=== PATIENT | female | born 1930 | race Caucasian/White ===

== ENCOUNTER 2017-07-19 02:35 | Inpatient (IN) | payer OTHER ==
[~2017-07-19] VITALS: Ht 152.4 cm; Wt 46.5 kg
[~2017-07-19 02:35] MED LIST: AZOR 10/40 M1 TABLET PO; DETROL LA4 MG PO; FUROSEMIDE20 MG PO; HYDROCODONE-AP1 EAC8 PO; LOPRESSOR100 MG PO; LOTREL 5-40 MG1 EACH PO; NEXIUM40 MG PO; PRAVASTATIN SOD40 MG PO; PREDNISONE10 M2 PO
[2017-07-19 04:26] LABS: APPEARANCE SL.HAZY ((CLEAR)); BILIRUBIN NEGATIVE; BLOOD NEGATIVE; COLOR YELLOW ((YELLOW)); GLUCOSE (STRIP) NEGATIVE; KETONES NEGATIVE; LEUKOCYTES NEGATIVE; NITRITE NEGATIVE; PROTEIN (STRIP) 30; SPECIFIC GRAVITY 1.021 (1.000-1.030)
[2017-07-19 04:33] LABS: BACTERIA RARE /HPF; EPITHELIAL CELLS NONE SEEN /HPF; HYALINE CASTS 0-5 /LPF; MUCUS TRACE /LPF; RED BLOOD CELLS 0-5 /HPF (0-5); UCUL ADDED? NO; WHITE BLOOD CELLS 0-5 /HPF (0-5)
[2017-07-19 05:30] LABS: HEMATOCRIT 31.9 % (36.0-46.0); HEMOGLOBIN 10.2 G/DL (11.9-15.5); MCH 27.9 PG (29.0-34.0); MCV 87.4 FL (83-99); PLATELET COUNT 192 K/uL (156-360); RBC DIS.WIDTH-CV 14.2 % (11.8-14.6); RBC DIS.WIDTH-SD 45.5 % (39-53); RED BLOOD COUNT 3.65 M/uL (3.80-5.20)
[2017-07-19 05:56] LABS: ALBUMIN 3.3 g/dL (3.2-4.8); CHLORIDE 102 mEq/L (99-109); POTASSIUM 4.8 mEq/L (3.7-5.4); SODIUM 138 mEq/L (136-147)
[2017-07-19 05:58] LABS: GLUCOSE 126 mg/dL (70-99)
[2017-07-19 06:00] LABS: TOTAL BILIRUBIN 0.7 mg/dL (0.0-1.0)
[2017-07-19 06:02] LABS: ALKALINE PHOSPHATASE 83 IU/L (3-129); GFR ESTIMATE (CALCULATED) 56 mL/min/
[2017-07-19 06:03] LABS: UREA NITROGEN (BUN) 29 mg/dL (9-23)
[2017-07-19 06:04] LABS: AST (GOT) 33 IU/L (2-34)
[2017-07-19 06:05] LABS: ALT (GPT) 13 IU/L (3-49)
[2017-07-19 11:41] LABS: CRYSTALS NO CRYSTALS SEEN
[2017-07-19 11:42] LABS: APPEARANCE CLOUDY/BLOODY; BODY FLUID RBC'S ND /MM^3 (0-100); BODY FLUID WBC'S ND /MM^3 (0-500)
[2017-07-19 11:44] VITALS: BP 105/52
[2017-07-19 12:02] LABS: MONONUCLEAR WBC'S 25 %; POLYNUCLEAR WBC'S 75 % (0-25)
[2017-07-19 13:28] LABS: SYNOVIAL FLUID GLUCOSE < 10 MG/DL
== END 2017-07-19 12:56 | disposition hospice, home (50) | DRG 566 ==
LOC: EME → EDBD 02:35 → EDOF 09:20 → ENRESERV 09:43 → CANRESERV 10:04 → EDOF 11:48
PROVIDERS: Emergency Medicine
PROC: 0S993ZX Drainage of Right Hip Joint, Percutaneous Approach, Diagnostic (ICD-10-PCS; principal; 2017-07-19)
DX: M25.451 Effusion, right hip (principal); D72.829 Elevated white blood cell count, unspecified; Z51.5 Encounter for palliative care; M85.80 Other specified disorders of bone density and structure, unspecified site; I10 Essential (primary) hypertension; K21.9 Gastro-esophageal reflux disease without esophagitis; M25.562 Pain in left knee; R00.0 Tachycardia, unspecified; R41.0 Disorientation, unspecified; M25.551 Pain in right hip; R50.9 Fever, unspecified; R53.1 Weakness; M19.90 Unspecified osteoarthritis, unspecified site; F03.90 Unspecified dementia, unspecified severity, without behavioral disturbance, psychotic disturbance, mood disturbance, and anxiety; Z86.73 Personal history of transient ischemic attack (TIA), and cerebral infarction without residual deficits
CPT/HCPCS: 72192; 73502; 73552; 73564; 77002; 80053; 81003; 82945 91; 84157; 85027; 87205; 89051; 89060; 99281; 99285; J0696; J3370; J7030; J7050